=== PATIENT | male | born 1990 | race Caucasian/White ===

== ENCOUNTER 2021-09-16 17:59 | Emergency (ER) | payer OTHER, SELFPAY ==
--- NOTE | ~2021-09-16 | XR_ITS ---
EXAMINATION: XR HIP, RIGHT WITH PELVIS CLINICAL INFORMATION: Pain COMPARISON: None TECHNIQUE: Two views of the right hip. AP pelvis. FINDINGS: Alignment across the hips is anatomic. Hip joint spaces may be mildly narrowed. No acute fracture is seen. Sacroiliac joints and pubic symphysis appear intact. XR/XR hip RT w PEL1V IMPRESSION: No acute findings identified.
[2021-09-16 21:17] VITALS: BP 122/78; PULSE 78; RESP 18; TEMP 36.7; O2SAT 99; BMI 27.8
[2021-09-17 03:27] VITALS: BP 114/88; PULSE 65; RESP 16; O2SAT 96
[2021-09-17] MEDS: Ketorolac Tromethamine 30 MG/ML VIAL 15 MG IM (03:42)
[2021-09-17] MEDS: Acetaminophen 325 MG TABLET 975 MG PO (03:42)
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
== END 2021-09-17 04:28 | disposition home or self-care (01) ==
PROVIDERS: Emergency Provider Student in an Organized Health Care Education/Training Program
DX: M25.551 Pain in right hip (principal)
CPT/HCPCS: 73502; 96372; 99284; J1885

== ENCOUNTER 2022-03-08 23:03 | Emergency (ER) | payer OTHER, SELFPAY ==
--- NOTE | ~2022-03-08 | CT_ITS ---
EXAMINATION: CT HEAD WITHOUT CONTRAST CLINICAL INFORMATION: Trauma COMPARISON: None TECHNIQUE: Contiguous axial imaging was performed from the skull base to vertex without intravenous administration of contrast. This CT examination was performed using dose optimization techniques as appropriate, variously including the following: *Automated exposure control *Adjustment of mA and/or kV according to patient size (this includes techniques or standardized protocols for targeted exams where dose is matched to indication/reason for exam; i.e. extremities or head) *Use of iterative reconstruction technique DLP: 694 mGy-cm FINDINGS: There is no evidence of acute intracranial hemorrhage or territorial infarction. No abnormal mass effect or midline shift is seen. Peacock to white matter differentiation is well preserved. No extra-axial fluid collections are identified. The ventricles are normal in size. There is no abnormal attenuation within the brain parenchyma A 2.3 mm calcific density adjacent to the superolateral orbital rim on the left possibly represent foreign body, age indeterminant. Mucosal thickening throughout the ethmoid air cells. Remaining paranasal sinuses and mastoid air cells are clear. CT/CT head/brain wo con IMPRESSION: No acute intracranial pathology.
[2022-03-09 00:07] VITALS: BP 134/76; PULSE 120; RESP 18; TEMP 37.4; O2SAT 99; BMI 29.8
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
[2022-03-09] MEDS: Diphth,Pertus(ACell),Tet Adult 0.5 ML SYRINGE IM (02:35)
[2022-03-09] MEDS: Ibuprofen 600 MG TABLET PO (02:35)
== END 2022-03-09 02:59 | disposition home or self-care (01) ==
PROVIDERS: Emergency Provider Emergency Medicine
DX: S01.01XA Laceration without foreign body of scalp, initial encounter (principal); S79.912A Unspecified injury of left hip, initial encounter; G44.309 Post-traumatic headache, unspecified, not intractable; M25.552 Pain in left hip; W01.0XXA Fall on same level from slipping, tripping and stumbling without subsequent striking against object, initial encounter; Y93.9 Activity, unspecified; Y92.9 Unspecified place or not applicable; Y99.0 Civilian activity done for income or pay; Z79.899 Other long term (current) drug therapy
CPT/HCPCS: 70450; 90471; 90472; 90715; 99282; 99284